=== PATIENT | female | born 1985 | race Caucasian/White ===

== ENCOUNTER 2018-01-17 12:02 | Emergency (ER) | payer SELFPAY, MEDICAID ==
[2018-01-17] MEDS: ACETAMINOPHEN 325 MG TAB PO (14:20)
[2018-01-17] MEDS: IBUPROFEN 200 MG TAB PO (14:20)
== END 2018-01-17 14:44 | disposition home or self-care (01) ==
LOC: FTE 14:44
DX: S41.151A Open bite of right upper arm, initial encounter (principal); W54.0XXA Bitten by dog, initial encounter; Y92.9 Unspecified place or not applicable
CPT/HCPCS: 99284